=== PATIENT | female | born 1960 | race Caucasian/White ===

== ENCOUNTER 2019-02-02 20:27 | Emergency (ER) | payer BC ==
--- NOTE | 2019-02-02 20:36 | PDOC ---
Rapid Medical Evaluation Time Seen by Provider: 02/02/19 20:35 Medical Evaluation: Allergies Allergy/AdvReac Type Severity Reaction Status Date / Time No Known Allergies Allergy Verified 10/14/13 10:57 02/02/19 20:35 I have performed a brief in-person evaluation of this patient. The patient presents with a chief complaint of: R buttocks/thigh pain s/p mechanical fall [place] [employer] today, able to ambulate but painful. No head injury. No pmhx and not on blood thinners Pertinent physical exam findings: slight limp in triage I have ordered the following:Hip xray The patient will proceed to the ED for further evaluation. 02/02/19 20:37 Discharge Disposition - Diagnosis Fall Qualifiers: Encounter type: initial encounter Qualified Code(s): W19.XXXA - Unspecified fall, initial encounter - Referrals - Patient Instructions - Post Discharge Activity
[2019-02-02 20:39] VITALS: BP 170/79; PULSE 98; TEMP 98.7; BMI 28.3
--- NOTE | 2019-02-02 21:25 | PDOC ---
History of Present Illness - General Chief Complaint: Pain Stated Complaint: PAIN Time Seen by Provider: 02/02/19 20:35 History Source: Patient Exam Limitations: No Limitations - History of Present Illness Initial Comments: 02/02/19 21:20 Was in a grocery store today when she slipped and fell on wet piece of paper falling onto her right buttock and pelvis. Patient states was able to get up and has been walking but since time of injury has had progressive worsening of pain. States stretched her groin and has pain in her hamstring and her deep buttock area. Occurred: reports: this afternoon Severity: reports: mild, moderate Pain Location: reports: back, pelvis Method of Injury: Yes: fall Loss of Consciousness: no loss of consciousness Associated Symptoms (Fall): denies symptoms Past History - Past Medical History Allergies/Adverse Reactions: Allergies Allergy/AdvReac Type Severity Reaction Status Date / Time No Known Allergies Allergy Verified 10/14/13 10:57 - Suicide/Smoking/Psychosocial Hx Smoking History: Never smoked Hx Alcohol Use: Yes (SOCIAL) Substance Use Type: None Review of Systems - Review of Systems Able to Perform ROS?: Yes Is the patient limited [place] proficient: Yes Constitutional: Yes: Symptoms Reported, See HPI, Malaise. No: Fever HEENTM: No: Symptoms Reported : No: Symptoms Reported Musculoskeletal: Yes: Symptoms Reported, See HPI, Joint Pain, Muscle Pain Integumentary: Yes: See HPI. No: Symptoms Reported Neurological: No: Symptoms reported All Other Systems: Reviewed and Negative *Physical Exam - Vital Signs Last Vital Signs Temp Pulse Resp BP Pulse Ox 98.7 F 98 H 19 170/79 102 H 02/02/19 20:36 02/02/19 20:36 02/02/19 20:36 02/02/19 20:36 02/02/19 20:36 - Physical Exam General Appearance: Yes: Nourished, Appropriately Dressed, Mild Distress HEENT: positive: EOMI, ANA, Normal ENT Inspection, TMs Normal, Pharynx Normal Neck: positive: Supple. negative: Tender Respiratory/Chest: positive: Lungs Clear, Normal Breath Sounds Cardiovascular: positive: Regular Rhythm Gastrointestinal/Abdominal: positive: Normal Bowel Sounds, Soft. negative: Tender Extremity: positive: Normal Capillary Refill. negative: Normal Range of Motion (limited range of motion to right leg, with tenderness reproduced at the right inguinal area. 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 fall with multiple contusions and groin strain. We'll treat with NSAIDs and follow-up with orthopedist as needed. *DC/Admit/Observation/Transfer Diagnosis at time of Disposition: Inguinal strain Qualifiers: Encounter type: initial encounter Laterality: right Qualified Code(s): S76.211A - Strain of adductor muscle, fascia and tendon of right thigh, initial encounter Contusion Qualifiers: Encounter type: initial encounter Contusion area: pelvic area Qualified Code(s) : S30.0XXA - Contusion of lower back and pelvis, initial encounter - Discharge Dispostion Disposition: HOME Condition at time of disposition: Stable Decision to Admit order: No - Referrals Referrals: Fritz Arambula MD [Staff Physician] - - Patient Instructions Printed Discharge Instructions: DI for Contusion Additional Instructions: Rest, ice to area on and off for 15 minutes 4-6 times a day Avoid heavy lifting or exercise until pain and swelling is resolved or until further directed Keep area highly elevated to reduce swelling Use splints/Arian wrap as directed Followup with orthopedist in one to 2 days if not improving, if significantly improved may wait one week for followup with orthopedist May use ibuprofen every 6 hours as needed for pain - Post Discharge Activity Forms/Work/School Notes: Back to Work
== END 2019-02-02 21:30 | disposition home or self-care (01) ==
LOC: JERFT 20:27
DX: S76.211A Strain of adductor muscle, fascia and tendon of right thigh, initial encounter (principal); S30.0XXA Contusion of lower back and pelvis, initial encounter; W01.0XXA Fall on same level from slipping, tripping and stumbling without subsequent striking against object, initial encounter; Y93.89 Activity, other specified; Y92.512 Supermarket, store or market as the place of occurrence of the external cause
CPT/HCPCS: 73523-TC-FY; 99281-25